=== PATIENT | male | born 1965 | race Caucasian/White ===

== ENCOUNTER 2016-03-16 05:53 | Inpatient (IN) | payer OTHER, MEDICAID ==
[2016-03-16] MEDS ORDERED: LIDOCAINE 1% 5 ML SDV ID PRN (06:42)
[2016-03-16] MEDS ORDERED: LR 1,000 ML IV ONE (06:42)
[2016-03-16] MEDS ORDERED: DEXAMETHASONE 4 MG/ML VIAL ONE (06:50)
[2016-03-16] MEDS ORDERED: ACETAMINOPHEN 325 MG TAB ONE ×2 (06:50→12:01)
[2016-03-16] MEDS ORDERED: FAMOTIDINE 20 MG TAB ONE (06:50)
[2016-03-16] MEDS ORDERED: CEFAZOLIN 2 GM/DEXTROSE/100 ML BAG IV ONE (06:50)
[2016-03-16] MEDS ORDERED: CALCIUM CHLORIDE 1 GM/10 ML INJ ONE (06:55)
[2016-03-16] MEDS ORDERED: BUPIVACAINE/EPI 0.5% 30 ML SDV ONE (06:55)
[2016-03-16] MEDS ORDERED: BACITRACIN 50,000 UNITS/10 ML SYR IRR ONE (06:55)
[2016-03-16] MEDS ORDERED: THROMBIN (RECOMBINANT) 5,000 UNIT VIAL TP ONE (06:55)
[2016-03-16] MEDS ORDERED: POLYMYXIN B SULFATE 500,000 UNIT/10 ML SYR IRR ONE (06:55)
[2016-03-16] MEDS ORDERED: ROCURONIUM 100 MG/10 ML VIAL ONE (07:01)
[2016-03-16] MEDS ORDERED: PROPOFOL 200 MG/20 ML VIAL ONE (07:01)
[2016-03-16] MEDS ORDERED: METOCLOPRAMIDE 10 MG/2 ML VIAL ONE (07:01)
[2016-03-16] MEDS ORDERED: LIDOCAINE 2% 100 MG/5 ML SYR IVP ONE (07:01)
[2016-03-16] MEDS ORDERED: MIDAZOLAM 2 MG/2 ML VIAL ONE (07:08)
[2016-03-16 07:18] LABS: ANION GAP 11 mEq/L (8-16); CALCIUM 8.9 mg/dL (8.5-10.4); CARBON DIOXIDE 24 mEq/l (22-31); CHLORIDE 104 mEq/L (97-110); GLOMERULAR FILTRATION RATE > 60; GLUCOSE 95 mg/dL (70-100); POTASSIUM 4.7 mEq/L (3.5-5.2); SODIUM 139 mEq/L (134-144)
[2016-03-16] MEDS ORDERED: FAMOTIDINE 20 MG TAB PO ONE (07:30)
[2016-03-16] MEDS ORDERED: CEFAZOLIN 2 GM/DEXTR 100 ML IV ONE (07:30)
[2016-03-16] MEDS ORDERED: ACETAMINOPHEN 325 MG TAB PO ONE (07:30)
[2016-03-16] MEDS ORDERED: CHLORHEXIDINE GLUC HIBICLENS 118 ML BTL TP ONE (07:30)
[2016-03-16] MEDS ORDERED: DEXAMETHASONE 4 MG/ML VIAL IVP ONE (07:30)
[2016-03-16] MEDS ORDERED: ROPI/epiNEPH/KETOROLAC/morphINE JOINT COCKTAIL IU ONE (07:30)
[2016-03-16] MEDS ORDERED: PHENYLEPHRINE HCL 100 MCG/ML SYR ONE (07:50)
[2016-03-16] MEDS ORDERED: SUGAMMADEX SODIUM 200 MG/2 ML VIAL IVP ONE (10:09)
[2016-03-16] MEDS ORDERED: ONDANSETRON 4 MG/2 ML VIAL ONE (10:09)
--- NOTE | 2016-03-16 11:02 | POSTOPPROG ---
Post Op Note Date of Operation: 03/16/16 Surgeon: Nadia De La Cruz Auto Hauler: leticia Anesthesiologist: josefina Anesthesia: Epidural Pre-op Diagnosis: bilat knee avn Procedure: b tkr Inf/Abcess present in the surg proc area at time of surgery?: No Depth: Deep Incisional (Fascial) EBL: 100-500
[2016-03-16] MEDS ORDERED: ONDANSETRON DISINTEGRATING 4 MG TAB PO PRN (11:06)
[2016-03-16] MEDS ORDERED: LACTULOSE 20 GM/30 ML UDCUP PO PRN (11:06)
[2016-03-16] MEDS ORDERED: METOCLOPRAMIDE 10 MG/2 ML VIAL IVP PRN (11:06)
[2016-03-16] MEDS ORDERED: PROMETHAZINE HCL 25 MG/ML VIAL IVP PRN (11:06)
[2016-03-16] MEDS ORDERED: diphenhydrAMINE 25 MG CAP PO PRN (11:06)
[2016-03-16] MEDS ORDERED: PROMETHAZINE HCL 25 MG SUPPR PR PRN (11:06)
[2016-03-16] MEDS ORDERED: PHARMACY PAIN CONSULT 1 EA MISC PRN (11:06)
[2016-03-16] MEDS ORDERED: MAGNESIUM HYDROXIDE 30 ML UDCUP PO PRN (11:06)
[2016-03-16] MEDS ORDERED: TAPENTADOL HCL 50 MG TAB PO PRN (11:06)
[2016-03-16] MEDS ORDERED: TEMAZEPAM 15 MG CAP PO PRN (11:06)
[2016-03-16] MEDS ORDERED: BISACODYL 10 MG SUPP PR PRN (11:06)
[2016-03-16] MEDS ORDERED: ONDANSETRON 4 MG/2 ML VIAL IVP PRN (11:06)
[2016-03-16] MEDS ORDERED: DIPHENOXYLATE/ATROPINE LOMOTIL 1 TAB PO PRN (11:06)
[2016-03-16] MEDS ORDERED: fentaNYL 100 MCG/2 ML INJ ONE ×3 (11:09→13:02)
[2016-03-16] MEDS ORDERED: oxyCODONE IR 5 MG TAB ONE (11:27)
[2016-03-16] MEDS ORDERED: KETOROLAC 30 MG/1 ML SDV ONE (11:27)
[2016-03-16] MEDS ORDERED: LR 1,000 ML IV SCH (11:30)
[2016-03-16] MEDS ORDERED: XANAX 0.5 MG PO SCH (12:00)
--- NOTE | 2016-03-16 12:12 | DX ---
Portable Right and Left Knees (AP and Lateral Views) 11:43 a.m. Clinical History: 50-year-old male in the PACU after bilateral knee arthroplasties. Comparison Studies: None currently available. Findings: The patient has undergone bilateral tricomponent knee arthroplasties, with anatomic positio ector of the distal femoral, proximal tibial, and the posterior patellar components. Radiolucent space rs are appropriately positioned. There is normally-expected postoperative air in the soft tissues. Impression: Anatomic alignment following bilateral knee arthroplasties.
[2016-03-16] MEDS: ACETAMINOPHEN 325 MG TAB PO SCH ×3 (13:23→22:42)
--- NOTE | 2016-03-16 13:23 | GOP ---
[f rep st] OPERATIVE REPORT DATE OF OPERATION: 03/16/2016 SURGEON: Nadia De La Cruz MD ARMATURE AND ROTOR WINDER: Bradford Kebede CSA, whose presence was medically necessary. ANESTHESIA: Epidural nerve block. PREOPERATIVE DIAGNOSIS: Bilateral knee avascular necrosis. POSTOPERATIVE DIAGNOSIS: Bilateral knee avascular necrosis. PROCEDURE PERFORMED: Bilateral total knee arthroplasty. FINDINGS: TOURNIQUET TIME: 66 minutes on the right and 70 minutes on the left. HISTORY OF PRESENT ILLNESS: Mr. Bishop is a 50-year-old male with a long history of avascular necrosis to multiple joints. He has had successful bilateral shoulder arthroplasties, which have alleviated his pain. He has tried arthroscopy and multiple conservative measures to the knees without relief in the face of known AVN via MRI of the knees. DESCRIPTION OF PROCEDURE: Patient brought to the operating room after both sides had been identified as the correct sides by the patient, nurse, and physician. Once in the operating room, he was given an epidural nerve block with sedation. He had a tourniquet placed around the upper portion of bilateral thighs. Both lower extremities were then sterilely prepped and draped in the usual fashion using GSI solution. Once prepped and draped, the right limb was exsanguinated, tourniquet inflated to 275 mmHg. A linear incision was made on the anterior portion of the knee with bleeding controlled using electrocautery. A medial parapatellar incision was made through the extensor mechanism with the patella brought to the side, but not everted. The ACL along with the medial and lateral menisci were removed along with an abundant amount of synovium in the suprapatellar pouch. Then a drill hole was made 1 cm anterior to the intercondylar notch with an intramedullary guide placed in the femur and set to remove 10 mm of bone. The guide was pinned into place. An oscillating saw was used to remove the distal portion of the femur. Cartilage was removed off the posterior condyles of the femur and a sizing guide was placed on the cut surface of the femur and pinned into place, measured to be a size 6 without notching the anterior cortex. Therefore, the guide was removed along with the guidepins and a size 6, 4-in-1 cutting block was placed on the femur, and the anterior, posterior, and chamfer cuts were made. A trial was put in place and noted to fit securely, and lug holes were drilled for the femoral component. The trial was removed. The knee was brought to maximal flexion. With the tibia subluxed anteriorly, an external tibial guide was put into place, set in neutral varus valgus, and set to remove 4 mm of bone from the medial portion of the knee. Once pinned into place, a drop daniella was used to ensure proper alignment with a locking pin put into place. Oscillating saw was used to remove the proximal portion of the tibia until achieving a flat cut. Trial femur, tibia, and polyethylene liner were put into place. The knee was able to easily achieve full extension. Therefore, the trials were removed. The tibia was subluxed anteriorly again. Multiple trials were placed on the tibia and noted that a size 6 tibial tray seemed to fit best. It was placed in slight external rotation, pinned into place, and a keel punch passed through the plate. Once the keel punch and the trial had been removed, the knee was brought to full extension. Patella was then everted, was measured to be 32 mm in thickness, and an oscillating saw was used to remove the posterior portion of the patella, leaving 18 mm of bone to the patella. Noted that a 33 mm patella button seemed to fit best and lug holes were drilled for the patellar button. All cut surfaces of bone were then thoroughly irrigated with an antibiotic solution using pulsatile lavage while cement was being mixed. Once cement was doughy, it was placed on the cut surfaces of the tibia with a size 6 Triathlon tibial component from [employer] put in place and excess cement removed using a [place] elevator. Cement had been placed on the posterior skids of the femoral component with cement placed on the distal anterior portion of the cut bone, at which point a size 6 Triathlon cruciate retaining knee was put into place and excess cement removed using a [place] elevator, and a trial liner placed in the tibial tray and the knee brought to full extension under pressurized cement. Cement was placed on the cut surfaces of the patella and a 33 mm patellar button was clamped into place, and excess cement removed using a [place] elevator. Once cement had hardened, multiple trials were placed in the tibial tray and noted that an 11 mm seemed to fit best. Therefore, any remaining cement was cleaned off using a combination of rongeur and osteotome. The wound was thoroughly irrigated with an antibiotic solution using a bulb syringe. A size 11 polyethylene liner was placed in the tibial tray. Tourniquet released at 66 minutes. Bleeding was again controlled using electrocautery. The wound was closed with 0 Vicryl suture in [id number] type stitch for the extensor mechanism with plasma gel placed intra- articularly. 0 Vicryl and 2-0 Vicryl suture were used to close the subcutaneous layers with plasma gel placed external to the extensor mechanism. Attention was then turned to the left knee, which was not exsanguinated prior to an incision being made on the anterior portion of the knee, with sharp dissection carried down through the skin and subcutaneous layers with bleeding controlled using electrocautery. A medial parapatellar incision was brought through the extensor mechanism with the patella brought to the side, but not everted and bleeding again controlled with electrocautery. The ACL along with the medial and lateral menisci were removed, and a drill hole was made 1 cm anterior to the intercondylar notch with an intramedullary guide placed within the femur and cutting guide was set to remove 10 mm of bone. It was pinned into place. The intramedullary guide was removed. An oscillating saw was used to remove distal end of the femur. The cartilage was then taken off the posterior femoral condyles and a sizing guide placed on the cut surfaces of the femur. Drill holes were made for the guide and measurements revealed a size 6 seemed to fit best. Therefore, a size six 4 in 1 cutting block was put into place. Anterior, posterior, and chamfer cuts were made, and a size 6 trial was put in place and noted to fit securely, and lug holes were drilled for the femoral component. Attention was then turned to the tibia. After the knee had been maximally flexed and the tibia subluxed anteriorly, external tibial guide was placed in neutral varus valgus and a slight posterior slope with the keel punch passed through the tibial trial. Once these had been removed, femoral trial and tibial trial were put in place along with a trial polyethylene liner, and the knee was able to easily achieve full extension. Therefore, the trials were removed, knee brought to maximal flexion with the tibia subluxed anteriorly. Multiple trials were placed on the cut surfaces of the tibia and a size 6 seemed to fit best, was placed in slight external rotation with a keel punch passed through the trial. Trial was then removed. Knee brought to full extension. Attention was turned to the patella, which was everted, was measured to be 34 mm in thickness. An oscillating saw was used to remove the posterior portion of the patella, leaving 18 mm of bone. Trials were placed on the cut surfaces and noted a 33 mm patellar button seemed to fit best. All cut surfaces of bone were then thoroughly irrigated with an antibiotic solution using pulsatile lavage while cement was being mixed. Once cement was doughy, it was placed on the cut surfaces of the tibia with a size 6 Triathlon tibial baseplate from [employer] put in place and excess cement removed using a [place] elevator. Cement was placed on the posterior skids of the femoral component with cement placed on the distal anterior portion of the bone , and a size 6 Triathlon cruciate retaining femoral component was put in place with excess cement removed using a [place] elevator. A trial liner was placed in the tibial tray and the knee was brought to full extension under pressurized cement. Cement was placed on the cut surfaces of the patella with a 33 mm patellar button clamped into place and excess cement removed using a [place] elevator. Once cement had hardened, clamps were removed. Multiple trials were placed in the tibial tray. Noted that an 11 seemed to fit best. Therefore, after any excess cement had been removed using a combination of osteotome and rongeur, a size 11 polyethylene liner was put into place, noted to fit securely. The knee was brought to slight flexion. Tourniquet had been deflated at 70 minutes after being put up just before bony cuts were made. The wound was closed using 0 Vicryl suture in a figure-of- eight type stitch with plasma gel placed intra-articularly. 0 Vicryl and 2-0 Vicryl suture were used for the subcutaneous layers with plasma gel placed external to the extensor mechanism, and a 3-0 Prolene suture used in a running subcuticular stitch to close both knees. Both knees were then thoroughly washed and cleaned, and the wounds were dressed with Steri-Strips, Xeroform, 4x4s, and Kerlix. The legs were completely undraped in the operating room. Tourniquets were removed from the thighs and Saeid wraps were placed around each knee. He then had sedation removed, and he was transferred onto a stretcher and sent to recovery room in good condition. /[id number]/MODL MTDD
[2016-03-16] MEDS: ceFAZolin 2 GM/DEXTROSE 100 ML IV SCH ×2 (13:24→22:41)
[2016-03-16] MEDS: POLYETHYLENE GLYCOL 3350 17 GM PKT PO PRN (13:24)
[2016-03-16] MEDS: CYCLOBENZAPRINE 10 MG TAB PO PRN ×2 (13:24→22:42)
[2016-03-16] MEDS ORDERED: SENNOSIDES/DOCUSATE SODIUM TAB PO ONE (13:32)
[2016-03-16] MEDS: SENNOSIDES/DOCUSATE SODIUM TAB PO SCH ×2 (13:40→20:14)
[2016-03-16] MEDS: KETOROLAC 30 MG/1 ML SDV IVP SCH ×3 (13:41→22:41)
[2016-03-16] MEDS: traMADol 50 MG TAB PO SCH ×2 (14:33→22:41)
[2016-03-16] MEDS: morphINE SR 15 MG TAB PO SCH ×2 (14:33→20:13)
[2016-03-16] MEDS: oxyCODONE IR 5 MG TAB PO PRN ×3 (14:37→22:42)
[2016-03-16] MEDS ORDERED: GABAPENTIN 300 MG CAP PO ONE (15:00)
[2016-03-16] MEDS ORDERED: GABAPENTIN 300 MG CAP PO SCH (16:00)
[2016-03-16] MEDS: ALPRAZolam 0.5 MG TAB PO SCH ×2 (17:34→22:41)
[2016-03-16] MEDS: GABAPENTIN 300 MG CAP PO SCH ×2 (17:35→22:41)
[2016-03-16] MEDS: ZOLPIDEM TARTRATE 5 MG TAB PO SCH (20:13)
[2016-03-16] MEDS: FLUoxetine 20 MG CAP PO SCH (20:13)
[2016-03-16] MEDS: FAMOTIDINE 20 MG TAB PO SCH (20:13)
[2016-03-16] MEDS: QUEtiapine FUMARATE 200 MG TAB PO SCH (20:14)
[2016-03-16] MEDS ORDERED: morphINE SR 15 MG TAB PO SCH (21:00)
[2016-03-17] MEDS: KETOROLAC 30 MG/1 ML SDV IVP SCH ×4 (05:11→23:56)
[2016-03-17] MEDS: oxyCODONE IR 5 MG TAB PO PRN ×8 (05:11→23:56)
[2016-03-17] MEDS: ACETAMINOPHEN 325 MG TAB PO SCH ×4 (05:11→23:56)
[2016-03-17] MEDS: ALPRAZolam 0.5 MG TAB PO SCH ×4 (05:11→23:57)
[2016-03-17 05:47] LABS: HEMATOCRIT 36.9 % (40.0-51.0); HEMOGLOBIN 12.2 g/dL (13.7-17.5)
[2016-03-17] MEDS: GABAPENTIN 300 MG CAP PO SCH ×3 (08:00→21:28)
[2016-03-17] MEDS: FAMOTIDINE 20 MG TAB PO SCH ×2 (08:00→21:28)
[2016-03-17] MEDS: traMADol 50 MG TAB PO SCH ×3 (08:00→21:28)
[2016-03-17] MEDS: RIVAROXABAN 10 MG TAB PO SCH (08:01)
[2016-03-17] MEDS: morphINE SR 15 MG TAB PO SCH ×2 (08:01→21:28)
[2016-03-17] MEDS: ATORVASTATIN CALCIUM 10 MG TAB PO SCH (08:01)
[2016-03-17] MEDS: lamoTRIgine 100 MG TAB PO SCH (08:01)
[2016-03-17] MEDS: SENNOSIDES/DOCUSATE SODIUM TAB PO SCH ×2 (08:01→21:27)
[2016-03-17] MEDS: FLUoxetine 20 MG CAP PO SCH ×2 (08:01→21:28)
[2016-03-17] MEDS: [UNRECOGNIZED DRUG - OTHER] PO SCH (08:51)
[2016-03-17] MEDS: CYCLOBENZAPRINE 10 MG TAB PO PRN ×2 (10:39→21:28)
[2016-03-17] MEDS: QUEtiapine FUMARATE 200 MG TAB PO SCH (21:29)
[2016-03-17] MEDS: ZOLPIDEM TARTRATE 5 MG TAB PO SCH (21:29)
[2016-03-18] MEDS: KETOROLAC 30 MG/1 ML SDV IVP SCH ×4 (05:44→22:58)
[2016-03-18] MEDS: ACETAMINOPHEN 325 MG TAB PO SCH ×4 (05:44→22:59)
[2016-03-18] MEDS: CYCLOBENZAPRINE 10 MG TAB PO PRN (05:44)
[2016-03-18] MEDS: ALPRAZolam 0.5 MG TAB PO SCH ×4 (05:44→23:04)
[2016-03-18] MEDS: oxyCODONE IR 5 MG TAB PO PRN ×4 (05:45→22:59)
[2016-03-18 06:08] LABS: HEMATOCRIT 33.3 % (40.0-51.0); HEMOGLOBIN 11.4 g/dL (13.7-17.5)
[2016-03-18] MEDS: [UNRECOGNIZED DRUG - OTHER] PO SCH (08:37)
[2016-03-18] MEDS: SENNOSIDES/DOCUSATE SODIUM TAB PO SCH ×2 (10:36→19:46)
[2016-03-18] MEDS: FLUoxetine 20 MG CAP PO SCH ×2 (10:36→19:45)
[2016-03-18] MEDS: lamoTRIgine 100 MG TAB PO SCH (10:36)
[2016-03-18] MEDS: GABAPENTIN 300 MG CAP PO SCH ×3 (10:36→22:58)
[2016-03-18] MEDS: RIVAROXABAN 10 MG TAB PO SCH (10:37)
[2016-03-18] MEDS: traMADol 50 MG TAB PO SCH ×3 (10:37→23:03)
[2016-03-18] MEDS: ATORVASTATIN CALCIUM 10 MG TAB PO SCH (10:37)
[2016-03-18] MEDS: morphINE SR 15 MG TAB PO SCH ×2 (10:37→19:46)
[2016-03-18] MEDS: FAMOTIDINE 20 MG TAB PO SCH ×2 (10:37→19:45)
[2016-03-18] MEDS: QUEtiapine FUMARATE 200 MG TAB PO SCH (19:46)
[2016-03-18] MEDS: ZOLPIDEM TARTRATE 5 MG TAB PO SCH (22:58)
[2016-03-19] MEDS: ACETAMINOPHEN 325 MG TAB PO SCH ×3 (05:56→17:37)
[2016-03-19] MEDS: KETOROLAC 30 MG/1 ML SDV IVP SCH ×3 (05:56→17:38)
[2016-03-19] MEDS: ALPRAZolam 0.5 MG TAB PO SCH ×3 (05:56→17:37)
[2016-03-19] MEDS: FLUoxetine 20 MG CAP PO SCH ×2 (09:24→21:44)
[2016-03-19] MEDS: GABAPENTIN 300 MG CAP PO SCH ×3 (09:25→21:48)
[2016-03-19] MEDS: traMADol 50 MG TAB PO SCH ×3 (09:25→21:45)
[2016-03-19] MEDS: RIVAROXABAN 10 MG TAB PO SCH (09:25)
[2016-03-19] MEDS: SENNOSIDES/DOCUSATE SODIUM TAB PO SCH ×2 (09:25→21:48)
[2016-03-19] MEDS: lamoTRIgine 100 MG TAB PO SCH (09:25)
[2016-03-19] MEDS: [UNRECOGNIZED DRUG - OTHER] PO SCH (09:26)
[2016-03-19] MEDS: ATORVASTATIN CALCIUM 10 MG TAB PO SCH (09:26)
[2016-03-19] MEDS: FAMOTIDINE 20 MG TAB PO SCH (09:26)
[2016-03-19] MEDS: morphINE SR 15 MG TAB PO SCH ×2 (09:26→21:42)
--- NOTE | 2016-03-19 10:56 | PCMIDPN ---
Assessment/Plan: 1. Avascular necrosis status post bilateral total knee arthroplasties: Stable. Will likely go to a rehabilitation facility in [facility] either today or tomorrow. 2. HIV: Continue Odefsey, which he brought from home. Of note, the patient has also been on Pepcid, which interacts with 1 of the medications in this single tablet regimen. I discontinued. Moving forward when he goes to rehabilitation, he understands that he should not be on an antacid. Subjective: Walking around with physical therapy. Objective: No antibiotics [facility] Vital Signs Temp Pulse Resp BP Pulse Ox 36.4 C 98 18 107/70 96 03/19/16 07:18 03/19/16 07:18 03/19/16 07:18 03/19/16 07:18 03/19/16 07:18 Laboratory Results 03/18/16 04:39 03/16/16 06:25 03/18/16 03/19/16 03/20/16 05:59 05:59 05:59 Intake Total 1250 400 400 Output Total 1500 450 Balance -250 400 -50 - Physical Exam General Appearance: alert, no apparent distress ICD10 Worksheet Patient Problems: Problems Problem Status Diagnosed Arthritis of left shoulder region Acute
[2016-03-19] MEDS: oxyCODONE IR 5 MG TAB PO PRN ×3 (12:04→21:42)
[2016-03-19] MEDS: QUEtiapine FUMARATE 200 MG TAB PO SCH (21:40)
[2016-03-19] MEDS: ZOLPIDEM TARTRATE 5 MG TAB PO SCH (21:44)
[2016-03-19] MEDS: POLYETHYLENE GLYCOL 3350 17 GM PKT PO PRN (22:06)
[2016-03-19 23:51] VITALS: RESP 16
[2016-03-20] MEDS: ACETAMINOPHEN 325 MG TAB PO SCH ×3 (00:45→11:59)
[2016-03-20] MEDS: CYCLOBENZAPRINE 10 MG TAB PO PRN ×2 (00:45→13:18)
[2016-03-20] MEDS: ALPRAZolam 0.5 MG TAB PO SCH ×3 (00:45→11:59)
[2016-03-20] MEDS: KETOROLAC 30 MG/1 ML SDV IVP SCH ×3 (00:46→14:08)
[2016-03-20 08:01] VITALS: BP 119/87; PULSE 98; TEMP 97.7; O2SAT 94
[2016-03-20] MEDS: SENNOSIDES/DOCUSATE SODIUM TAB PO SCH (08:24)
[2016-03-20] MEDS: RIVAROXABAN 10 MG TAB PO SCH (08:24)
[2016-03-20] MEDS: ATORVASTATIN CALCIUM 10 MG TAB PO SCH (08:24)
[2016-03-20] MEDS: morphINE SR 15 MG TAB PO SCH (08:24)
[2016-03-20] MEDS: FLUoxetine 20 MG CAP PO SCH (08:24)
[2016-03-20] MEDS: GABAPENTIN 300 MG CAP PO SCH (08:25)
[2016-03-20] MEDS: traMADol 50 MG TAB PO SCH (08:25)
[2016-03-20] MEDS: lamoTRIgine 100 MG TAB PO SCH (08:25)
[2016-03-20] MEDS: oxyCODONE IR 5 MG TAB PO PRN ×2 (08:25→11:58)
[2016-03-20] MEDS: [UNRECOGNIZED DRUG - OTHER] PO SCH ×2 (08:29→11:57)
--- NOTE | 2016-03-20 10:26 | PDIAF ---
- Diagnosis Code Status: Full Code - Medication Management Discharge Medications: Medications to Continue on Transfer Odefesy 1 tab PO DAILY 11/13/15 [Last Taken 03/16/16 04:30] Aspirin [Aspirin 81mg (*)] 81 mg PO DAILY 11/13/15 [Last Taken 2 Weeks Ago] FLUoxetine [Prozac 20 MG (*)] 20 mg PO BID 11/13/15 [Last Taken 03/15/16 21:00] morphINE SR [Ms Contin/Oramorph 15 mg (*)] 15 mg PO BID 11/13/15 [Last Taken 11/21 21:00] traMADol [Ultram 50 mg (*)] 50 mg PO TID 11/13/15 [Last Taken 03/15/16 21:00] Atorvastatin Calcium [Lipitor 10 mg (*)] 10 mg PO DAILY 11/18/15 [Last Taken 1 Week Ago] Zolpidem Tartrate [Ambien 5MG (*)] 10 mg PO HS 11/18/15 [Last Taken 03/15/16] Gabapentin [Neurontin 300 MG (*)] 600 mg PO TID 02/19/16 [Last Taken 03/15/16 21 :00] QUEtiapine FUMARATE [Seroquel 200 mg (*)] 200 mg PO HS 02/19/16 [Last Taken 11/21] celeCOXIB [Celebrex (*)] 100 mg PO BID 02/19/16 [Last Taken 7 Days Ago] lamoTRIgine [LamICTAL 100 MG (*)] 200 mg PO DAILY 02/19/16 [Last Taken 03/15/16] ALPRAZolam [Xanax 0.5 MG (*)] 0.5 mg PO HS PRN 03/16/16 [Last Taken 03/15/16] oxyCODONE HCL/ACETAMINOPHEN [Percocet 10-325 mg Tablet] 1 each PO Q6 PRN [Last Taken Unknown] Rivaroxaban [Xarelto 10mg (*)] 10 mg PO DAILY #0 tab 03/20/16 [Last Taken Unknown] oxyCODONE IR [Oxycodone Ir (*)] 10 - 15 mg PO Q3HRS PRN #0 tab 03/20/16 [Last Taken Unknown] Discharge Medications: Refer to the Discharge Home Medication list for PRN reason. PICC Care - Routine: N/A - Orders Services needed: Physical Therapy Diet Recommendation: no restrictions on diet Diet Texture: Regular Texture Diet Bartholomew: Not applicable Wound Care Instructions: May change to occlusive dressing, can shower over dressing Sutures/[place] Site: Will remove in office Activity/Weight Bearing Restrictions: WBAT, should wear knee brace until he can straight leg raise - Follow Up Care Current Providers and Referrals: Pina Cannon NP [Primary Care Provider] -
--- NOTE | 2016-03-20 12:14 | SOAPPROG ---
DANIELE Progress Note Assessment/Plan: Assessment: Plan: Subjective: states he's ready fro rehab incisions C&D with feet NVI plan for transfer to rehab Objective: Vital Signs Temp Pulse Resp BP Pulse Ox 36.5 C 98 16 119/87 H 94 03/20/16 08:00 03/20/16 08:00 03/20/16 08:00 03/20/16 08:00 03/20/16 08:00 Laboratory Results 03/18/16 04:39 03/16/16 06:25 03/19/16 03/20/16 03/21/16 05:59 05:59 05:59 Intake Total 400 1300 Output Total 950 Balance 400 350 ICD10 Worksheet Patient Problems: Problems Problem Status Diagnosed Arthritis of left shoulder region Acute
== END 2016-03-20 13:23 | DRG 462 ==
LOC: F3N 05:53
PROVIDERS: ADMIT Orthopaedic Surgery; ATTEND Orthopaedic Surgery
PROC: 0SRC0J9 Replacement of Right Knee Joint with Synthetic Substitute, Cemented, Open Approach (ICD-10-PCS; principal; 2016-03-16 07:15)
PROC: 0SRD0J9 Replacement of Left Knee Joint with Synthetic Substitute, Cemented, Open Approach (ICD-10-PCS; principal; 2016-03-16 07:15)
DX: M87.08 Idiopathic aseptic necrosis of bone, other site (principal); F43.10 Post-traumatic stress disorder, unspecified; E27.1 Primary adrenocortical insufficiency
CPT/HCPCS: 97110-GP; 97116-GP; 97162-GP; 97167-GO; 97530-GP; 97535-GO; C1713; J0171; J0690; J1100; J1885; J2001; J2250; J2370; J2405; J2704; J2765; J2795; J3010

== ENCOUNTER → 2016-11-07 | Outpatient (CLI) | payer MEDICAID | LOC: SBRMNEURO 21:30 | PROVIDERS: ATTEND Psychiatry & Neurology Sleep Medicine | DX: G47.33 Obstructive sleep apnea (adult) (pediatric) (principal); G47.61 Periodic limb movement disorder ==

== ENCOUNTER → 2017-02-08 | Outpatient (CLI) | payer MEDICAID | LOC: FIMAGING 11:05 | PROVIDERS: ATTEND Nurse Practitioner | DX: Z13.820 Encounter for screening for osteoporosis (principal); B20 Human immunodeficiency virus [HIV] disease | CPT/HCPCS: 80307; G0483 ==